=== PATIENT | female | born 1985 | race Caucasian/White ===

== ENCOUNTER 2020-05-09 18:45 | Emergency (ER) | payer SELFPAY ==
[~2020-05-09] VITALS: Ht 160 cm; Wt 75.1 kg
[2020-05-09 19:07] VITALS: BP 121/78
== END 2020-05-09 20:33 | disposition home or self-care (01) ==
LOC: ED 20:25
DX: O26.891 Other specified pregnancy related conditions, first trimester (principal); K04.7 Periapical abscess without sinus; Z3A.13 13 weeks gestation of pregnancy
CPT/HCPCS: 41800; 99284

== ENCOUNTER 2020-10-16 02:17 | Inpatient (IN) | payer MEDICAID ==
[~2020-10-16] VITALS: Ht 160 cm; Wt 81.0 kg
[2020-10-16 02:58] VITALS: BP 126/84
[2020-10-16 03:13] LABS: MEAN CORPUSCULAR HEMOGLOBIN 27.2 pg (27.0-34.8); MEAN CORPUSCULAR HGB CONC 33.1 g/dL (32.4-35.8); MEAN PLATELET VOLUME 9.6 fL (7.4-10.4); PLATELET COUNT 308 x10^3/uL (130-400); RED BLOOD COUNT 4.15 x10^6/uL (3.82-5.3); RED CELL DISTRIBUTION WIDTH 18.1 % (9.6-15.2)
[2020-10-16 03:19] LABS: MICROSCOPIC INDICATED
[2020-10-16 03:27] LABS: AMPHETAMINE SCREEN, URINE Negative (Negative); BARBITURATE SCREEN, URINE Negative (Negative); BENZODIAZEPINE SCREEN, URINE Negative (Negative); CANNABINOID SCREEN, URINE Negative (Negative); COCAINE SCREEN, URINE Negative (Negative); METHADONE SCREEN, URINE Negative (Negative); OPIATE SCREEN, URINE Negative (Negative)
[2020-10-16] MEDS ORDERED: NEWBORN KIT ONE ×2 (03:47→11:25)
[2020-10-16] MEDS ORDERED: D5%-LACTATED RINGERS 1,000 ML IV SCH (04:00)
[2020-10-16] MEDS ORDERED: ONDANSETRON 2MG/ML, 2ML IVPush PRN (04:00)
[2020-10-16] MEDS ORDERED: PENICILLIN GK 5,000,000 UNITS in DEXTROSE 5% 100 ML IVPB ONE (04:00)
[2020-10-16] MEDS ORDERED: TERBUTALINE 1 MG/ML, 1ML SQ PRN (04:00)
[2020-10-16] MEDS ORDERED: TERBUTALINE 1 MG/ML, 1ML IVPush PRN (04:00)
[2020-10-16] MEDS ORDERED: BETAMETHASONE 6 MG/ML, 5ML IM SCH (04:00)
[2020-10-16] MEDS ORDERED: FENTANYL PF 100 MCG/2ML IVPush PRN (04:00)
[2020-10-16] MEDS ORDERED: SODIUM CITRATE/CITRIC ACID 30 ML UDC PO PRN (04:00)
[2020-10-16] MEDS ORDERED: FENTANYL PF 100 MCG/2ML IV PRN (04:00)
[2020-10-16] MEDS ORDERED: METOCLOPRAMIDE 5 MG/ML, 2ML IVPush PRN (04:00)
[2020-10-16] MEDS: LACTATED RINGERS 1,000 ML IV SCH ×4 (04:03→14:17)
[2020-10-16] MEDS ORDERED: OXYTOCIN 30U/ 0.9% NaCL 500ML 500 ML ONE (07:12)
[2020-10-16 07:20] LABS: ALBUMIN 2.4 g/dL (3.4-5.0); ANION GAP 13 mmol/L (5-15); CALCIUM 8.6 mg/dL (8.5-10.1); CHLORIDE 107 mmol/L (98-107)
[2020-10-16 07:24] LABS: ALANINE AMINOTRANSFERASE 30 U/L (12-78); ALKALINE PHOSPHATASE 188 U/L (45-117); BILIRUBIN,TOTAL 0.4 mg/dL (0.2-1.0); CREATININE 0.58 mg/dL (0.55-1.02); TOTAL PROTEIN 6.9 g/dL (6.4-8.2)
[2020-10-16] MEDS ORDERED: FENTANYL/BUPIV./NS/PF 250 ML EPIDCONT ONE (07:37)
[2020-10-16] MEDS ORDERED: BUPIVACAINE 0.25% ONE (07:37)
[2020-10-16] MEDS ORDERED: PENICILLIN GK 2,500,000 UNITS in DEXTROSE 5% 100 ML IVPB SCH (08:00)
[2020-10-16] MEDS ORDERED: LACTATED RINGERS 1,000 ML IV SCH (08:30)
[2020-10-16] MEDS ORDERED: LACTATED RINGERS 1,000 ML IVBOLUS PRN (08:30)
[2020-10-16] MEDS ORDERED: FENTANYL/BUPIV./NS/PF 250 ML EPIDCONT SCH (08:30)
[2020-10-16] MEDS ORDERED: EPHEDRINE 50 MG/ML, 1ML IVPush PRN (08:30)
[2020-10-16] MEDS ORDERED: OXYTOCIN 30U/ 0.9% NaCL 500ML 500 ML IV SCH ×6 (12:30)
[2020-10-16] MEDS ORDERED: HYDROcodone/APAP 5/325 TABLET PO PRN ×8 (12:30)
[2020-10-16] MEDS ORDERED: ACETAMINOPHEN 325 MG TABLET PO PRN ×8 (12:30)
[2020-10-16] MEDS ORDERED: DOCUSATE 100 MG CAPSULE PO PRN ×4 (12:30)
[2020-10-16] MEDS ORDERED: MISOPROSTOL 200 MCG TABLET PR PRN ×4 (12:30)
[2020-10-16] MEDS ORDERED: SIMETHICONE 80 MG CHEW TAB PO PRN ×4 (12:30)
[2020-10-16] MEDS ORDERED: IBUPROFEN 600 MG TABLET PO PRN ×4 (12:30)
[2020-10-16] MEDS: OXYTOCIN 30U/ 0.9% NaCL 500ML 500 ML IV SCH ×11 (12:30→23:58)
[2020-10-16] MEDS ORDERED: ONDANSETRON 2MG/ML, 2ML IV PRN ×4 (12:30)
[2020-10-16] MEDS ORDERED: CALCIUM CARBONATE 500 MG TAB.CHEW PO PRN ×4 (12:30)
[2020-10-16 15:47] VITALS: BP 121/78
[2020-10-16 19:50] VITALS: BP 110/65
[2020-10-16 19:53] LABS: BASOPHILS % (AUTO) 0 % (0-1); EOSINOPHILS % (AUTO) 0 % (1-7); LYMPHOCYTES % (AUTO) 9 % (22-44); MEAN CORPUSCULAR HEMOGLOBIN 26.6 pg (27.0-34.8); MEAN CORPUSCULAR HGB CONC 32.1 g/dL (32.4-35.8); MEAN PLATELET VOLUME 9.9 fL (7.4-10.4); MONOCYTES % (AUTO) 6 % (2-9); NEUTROPHILS % (AUTO) 85 % (42-75); PLATELET COUNT 291 x10^3/uL (130-400); RED BLOOD COUNT 3.92 x10^6/uL (3.82-5.3); RED CELL DISTRIBUTION WIDTH 18.1 % (9.6-15.2)
[2020-10-16 23:40] VITALS: BP 110/67
[2020-10-17] MEDS: OXYTOCIN 30U/ 0.9% NaCL 500ML 500 ML IV SCH ×4 (01:24→05:42)
[2020-10-17 04:00] VITALS: BP 109/65
[2020-10-17 08:00] VITALS: BP 110/69
[2020-10-17] MEDS ORDERED: PRENATAL VIT/IRON/FA 1 EACH TABLET PO SCH ×4 (09:00)
[2020-10-17] MEDS ORDERED: FERR324T23 PO (15:13)
[2020-10-17] MEDS ORDERED: FERROUS GLUCONATE 324 MG TABLET PO SCH (17:00)
== END 2020-10-17 16:00 | disposition home or self-care (01) | DRG 805 ==
LOC: LDOP 02:17 → LDIP 03:40 → 2NW 14:50
PROVIDERS: ADMIT Obstetrics & Gynecology; ATTEND Obstetrics & Gynecology
PROC: 10E0XZZ Delivery of Products of Conception, External Approach (ICD-10-PCS; principal; 2020-10-16)
PROC: 0UQMXZZ Repair Vulva, External Approach (ICD-10-PCS; 2020-10-16)
PROC: 3E0R3BZ Introduction of Anesthetic Agent into Spinal Canal, Percutaneous Approach (ICD-10-PCS; 2020-10-16)
PROC: 00HU33Z Insertion of Infusion Device into Spinal Canal, Percutaneous Approach (ICD-10-PCS; 2020-10-16)
DX: O69.81X0 Labor and delivery complicated by cord around neck, without compression, not applicable or unspecified (principal); O60.14X0 Preterm labor third trimester with preterm delivery third trimester, not applicable or unspecified; Z37.0 Single live birth; O42.913 Preterm premature rupture of membranes, unspecified as to length of time between rupture and onset of labor, third trimester; Z20.822 Contact with and (suspected) exposure to COVID-19; O70.0 First degree perineal laceration during delivery; O71.82 Other specified trauma to perineum and vulva; Z3A.34 34 weeks gestation of pregnancy
CPT/HCPCS: 36415; 76805; 80053; 80307; 81001; 84112; 85025; 85027; 86592; 86762; 86850; 86900; 87081; 87086; 87340; 87635; 87806; 89060; G0378; J0702; J2540; J3010; G0475; J2590; J7120; Q0114